=== PATIENT | female | born 1980 | race African-American/Black ===

== ENCOUNTER 2018-08-25 08:39 | Outpatient (CLI) | payer MEDICAID ==
--- NOTE | 2018-08-25 11:15 | MMO ---
Bilateral MAMMO Bilat Screen [facility]. CLINICAL HISTORY: Patient is 38 years old and is seen for screening. The patient has no family history of breast cancer. The patient has no personal history of cancer. VIEWS: The views performed were: bilateral craniocaudal and bilateral mediolateral oblique. This study has been interpreted with the assistance of computer-aided detection. MAMMOGRAM FINDINGS: There are scattered fibroglandular densities. There are no suspicious masses, suspicious calcifications, or new areas of architectural distortion. IMPRESSION: THERE IS NO MAMMOGRAPHIC EVIDENCE OF MALIGNANCY. A ROUTINE FOLLOW-UP MAMMOGRAM IN 1 YEAR IS RECOMMENDED. ACR BI-RADS Category 1 - Negative MAMMOGRAPHY NOTE: 1. A negative mammogram report should not delay a biopsy if a dominant of clinically suspicious mass is present. 2. Approximately 10% to 15% of breast cancers are not detected by mammography. 3. Adenosis and dense breasts may obscure an underlying neoplasm.
== END 2018-08-25 08:40 | disposition home or self-care (01) ==
LOC: SCSMAMMO 08:39
PROVIDERS: ATTEND Physician Assistant
DX: Z12.31 Encounter for screening mammogram for malignant neoplasm of breast (principal)
CPT/HCPCS: 77067

== ENCOUNTER 2024-03-27 13:17 | Inpatient (IN) | payer MEDICAID, OTHER ==
[~2024-03-27 13:17] MED LIST: Iopamidol-370 76% 500 ML MDV (1 ML CHARGE) ONE
[2024-03-27 14:03] LABS: #Basophils Less than 0.03 10x3/uL (0.0-0.2); %Basophils 0.4 % (0.0-1.0); %Eosinophils 0.6 % (0.0-10.0); %Lymphocytes 29.6 % (21.0-51.0); %Monocytes 6.9 % (0.0-10.0); %Neutrophils 62.3 % (42.0-75.0); Hematocrit 33.6 % (36.0-47.0); Hemoglobin 10.1 g/dL (12.0-16.0); Mean Corpuscular HGB CONC 30.1 g/dL (32.0-36.0); Mean Corpuscular Hemoglobin 24.5 pg (27.0-31.0); Mean Corpuscular Volume 81.6 fL (78.0-98.0); Mean Platelet Volume 10.7 fL (7.4-10.4); Platelet Count 285 10x3/uL (130-400); RBC Distribution Width 14.1 % (11.5-14.5); Red Blood Cell (RBC) Count 4.12 mill/uL (4.20-5.40)
[2024-03-27] MEDS ORDERED: Metoclopramide HCl 10 MG (2 mL) VIAL ONE (14:14)
[2024-03-27] MEDS ORDERED: Ketorolac Tromethamine 30 MG (1 mL) VIAL ONE (14:14)
[2024-03-27] MEDS ORDERED: Acetaminophen 500 MG TAB ONE (14:14)
[2024-03-27 14:16] LABS: Prothrombin Time 13.4 sec (12.0-14.7)
[2024-03-27 14:18] LABS: Lipase 18 U/L (8-78); Magnesium 1.9 mg/dL (1.6-2.6)
[2024-03-27 14:19] LABS: Acetaminophen Less than 10 mcg/mL (Less than 10); Alcohol Less than 10.0 mg/dL (Less than 10); Salicylate Less than 8.0 mg/dL (Less than 8.0)
[2024-03-27 14:20] LABS: ALT (SGPT) 20 U/L (8-55); AST (SGOT) 11 U/L (5-34); Albumin 3.8 g/dL (3.5-5.0); Alkaline Phosphatase 120 U/L (40-110); Anion Gap 13 mmol/L (10-20); BUN (Urea Nitrogen) 16 mg/dL (7.0-18.7); Bilirubin, Total 0.4 mg/dL (0.2-1.2); Calc. Creatinine Clearance 0 mL/min (70-130); Calcium 9.6 mg/dL (7.8-10.44); Carbon Dioxide 23 mmol/L (22-29); Chloride 108 mmol/L (98-107); Estimated GFR 92; Globulin 3.2 g/dL (2.4-3.5); Glucose 318 mg/dL (70-105); Potassium 4.3 mmol/L (3.5-5.1); Sodium 140 mmol/L (136-145); Troponin I Less than 0.010 ng/mL (< 0.028)
[2024-03-27 14:29] LABS: Actual Bicarbonate (HCO3v) 23.5 mEq/L (22-28); Analyzer IN Cardio ER; Base Excess -1.2 mEq/L (-2.0 to +3.0); Calcium, Ionized (venous) 1.19 mmol/L (1.16-1.32); Chloride (VBG) 103 mmol/L (98-106); Hematocrit-VBG 36 % (36.0-47.0); Hemoglobin (Hb) 12.2 g/dL (11.7-16.0); Potassium (VBG) 4.15 mmol/L (3.70-5.30); Sodium 140 mmol/L (133-146); pH (venous) 7.397 (7.32-7.43)
[2024-03-27 14:58] LABS: Amphetamine Not Detected (NotDetected); Barbiturates Screen Not Detected (NotDetected); Benzodiazepine Screen Not Detected (NotDetected); Cocaine Metabolite Screen Not Detected (NotDetected); Methadone Not Detected (NotDetected); Methamphetamine Not Detected (NotDetected); Opiate Screen Not Detected (NotDetected); Oxycodone Screen Not Detected (NotDetected); Phencyclidine (PCP) Not Detected (NotDetected); THC/Cannabinoid Screen Not Detected (NotDetected); Tricyclic Screen Not Detected (NotDetected)
[2024-03-27 15:08] LABS: Bilirubin Negative (Negative); Blood, Urine Trace (Negative); CAUTI Indications for Culture Alt mental st,lethar; Glucose, Urine (Dipstick) Greater than 1000 mg/dL (Negative); Ketone, Urine Negative (Negative); Leukocyte 75 Leu/uL (Negative); Nitrite Negative (Negative); Protein, Urine (Dipstick) Negative (Neg-Trace); Specific Gravity, Urine 1.044 (1.002-1.036); Squamous Epithelial 0-3 HPF (0-3); Urobilinogen Normal mg/dL (Less than 2); WBC/HPF 21-50 HPF (0-3); Yeast-Hyphae Rare HPF (None Seen); pH, Urine 5.5 (5.0-9.0)
[2024-03-27 15:10] LABS: Bacteria/HPF 4+ HPF (None Seen); Clarity Hazy (Clear); Yeast-Budding 2+ HPF (None Seen)
[2024-03-27 15:11] LABS: Urine Culture Reflex Yes Yes
[2024-03-27] MEDS ORDERED: cefTRIAXone (ROCEPHIN) 1 GM VIAL ONE (16:05)
[2024-03-27] MEDS ORDERED: Sodium Chloride 0.9% 100 ML ONE (16:06)
[2024-03-27] MEDS ORDERED: Glucagon 1 MG/ML KIT IM PRN (18:14)
[2024-03-27] MEDS ORDERED: hydrALAZINE 20 MG/ML VIAL SLOW IVP PRN (18:14)
[2024-03-27] MEDS ORDERED: Ondansetron ODT 4 MG TAB PO PRN (18:14)
[2024-03-27] MEDS ORDERED: Dextrose 50% Abboject 50 ML SYRINGE SLOW IVP PRN (18:14)
[2024-03-27] MEDS ORDERED: Ondansetron PF 4 MG/2 ML Vial IVP PRN (18:14)
[2024-03-27] MEDS ORDERED: Senokot S 8.6-50 MG TAB PO PRN (18:14)
[2024-03-27] MEDS ORDERED: Dextrose 5% in Water 1,000 ML IV PRN (18:14)
[2024-03-27] MEDS ORDERED: Acetaminophen 650 MG Suppository PR PRN (18:14)
[2024-03-27] MEDS: Lactated Ringer's 1,000 ML IV SCH (22:02)
[2024-03-27] MEDS: Famotidine 20 MG TAB PO SCH (22:03)
[2024-03-27] MEDS: Aspirin Chewable 81 MG TAB PO SCH (22:03)
[2024-03-27] MEDS: Atorvastatin Calcium 40 MG TAB PO SCH (22:03)
[2024-03-28] MEDS: Acetaminophen 325 MG TAB PO PRN (01:55)
[2024-03-28 04:18] LABS: #Basophils 0.03 10x3/uL (0.0-0.2); %Basophils 0.6 % (0.0-1.0); %Lymphocytes 26.8 % (21.0-51.0); %Monocytes 6.5 % (0.0-10.0); %Neutrophils 64.9 % (42.0-75.0); Hematocrit 29.9 % (36.0-47.0); Mean Corpuscular HGB CONC 30.1 g/dL (32.0-36.0); Mean Corpuscular Hemoglobin 24.5 pg (27.0-31.0); Mean Corpuscular Volume 81.3 fL (78.0-98.0); Mean Platelet Volume 10.6 fL (7.4-10.4); Platelet Count 255 10x3/uL (130-400); RBC Distribution Width 14.1 % (11.5-14.5); Red Blood Cell (RBC) Count 3.68 mill/uL (4.20-5.40)
[2024-03-28 04:39] LABS: ALT (SGPT) 18 U/L (8-55); AST (SGOT) 15 U/L (5-34); Albumin 3.1 g/dL (3.5-5.0); Alkaline Phosphatase 105 U/L (40-110); Anion Gap 15 mmol/L (10-20); BUN (Urea Nitrogen) 13 mg/dL (7.0-18.7); Bilirubin, Total 0.3 mg/dL (0.2-1.2); Calc. Creatinine Clearance 134 mL/min (70-130); Calcium 8.5 mg/dL (7.8-10.44); Carbon Dioxide 22 mmol/L (22-29); Cardiac Risk 2.2 (Less than 4.5); Chloride 105 mmol/L (98-107); Cholesterol 98 mg/dl (< 200 Desired); Estimated GFR 95; Globulin 3.2 g/dL (2.4-3.5); Glucose 260 mg/dL (70-105); HDL Cholesterol 45 mg/dL (>60 Neg Risk); LDL Cholesterol, Calculated 23 mg/dL; Potassium 3.7 mmol/L (3.5-5.1); Protein, Total 6.3 g/dL (6.0-8.3); Sodium 138 mmol/L (136-145); Triglycerides 148 mg/dL (Less than 150)
[2024-03-28] MEDS ORDERED: Lorazepam 1 MG TAB PO SCH (08:30)
[2024-03-28] MEDS: Ketorolac Tromethamine 30 MG (1 mL) VIAL IVP PRN (08:31)
[2024-03-28] MEDS: Enoxaparin 40 MG (0.4 mL) SYRINGE SC SCH (08:32)
[2024-03-28] MEDS: Aspirin 81 mg Enteric Coated Tablet PO SCH (08:32)
[2024-03-28] MEDS: Calcium Carbonate 500 MG ChewTAB PO PRN (11:25)
[2024-03-28] MEDS: Insulin Lispro 100 UNIT/ML 10 ML VIAL SC PRN (14:09)
[2024-03-28] MEDS: cefTRIAXone\\ROCEPHIN 1 GM in Sodium Chloride 0.9% 100 ML IVPB SCH (17:35)
[2024-03-28 23:19] VITALS: BMI 31.6
[2024-03-29 03:57] LABS: #Basophils Less than 0.03 10x3/uL (0.0-0.2); %Basophils 0.3 % (0.0-1.0); %Eosinophils 1.3 % (0.0-10.0); %Lymphocytes 33.5 % (21.0-51.0); %Monocytes 6.2 % (0.0-10.0); %Neutrophils 58.7 % (42.0-75.0); Hemoglobin 10.2 g/dL (12.0-16.0); Mean Corpuscular HGB CONC 30.9 g/dL (32.0-36.0); Mean Corpuscular Hemoglobin 24.3 pg (27.0-31.0); Mean Corpuscular Volume 78.8 fL (78.0-98.0); Platelet Count 257 10x3/uL (130-400); RBC Distribution Width 13.8 % (11.5-14.5); Red Blood Cell (RBC) Count 4.19 mill/uL (4.20-5.40)
[2024-03-29 04:30] LABS: Hemoglobin A1c 11.7 % (4.0-6.0)
[2024-03-29 04:39] LABS: Anion Gap 13 mmol/L (10-20); BUN (Urea Nitrogen) 11 mg/dL (7.0-18.7); Calc. Creatinine Clearance 142 mL/min (70-130); Carbon Dioxide 23 mmol/L (22-29); Chloride 102 mmol/L (98-107); Estimated GFR 98; Glucose 239 mg/dL (70-105); Potassium 3.9 mmol/L (3.5-5.1); Sodium 134 mmol/L (136-145)
[2024-03-29] MEDS ORDERED: Lorazepam 1 MG TAB PO SCH (07:30)
[2024-03-29] MEDS: Lorazepam 1 MG TAB PO SCH (07:38)
[2024-03-29] MEDS: Losartan 25 MG TAB PO SCH (09:48)
[2024-03-29] MEDS: Pioglitazone HCl 15 MG TAB PO SCH (09:48)
[2024-03-29] MEDS: Amlodipine 10 MG TAB PO SCH (09:48)
[2024-03-29] MEDS: Gabapentin 300 MG CAP PO SCH ×2 (09:49→19:55)
[2024-03-29] MEDS ORDERED: Magnevist 469MG/ML 20 ML VIAL ONE (14:38)
[2024-03-29] MEDS: Insulin Lispro 100 UNIT/ML 10 ML VIAL SC PRN (19:59)
[2024-03-29] MEDS ORDERED: [UNRECOGNIZED DRUG - OTHER] SQ SCH (21:00)
[2024-03-29] MEDS ORDERED: INSULIN LISPRO 100 UNIT/ML SQ SCH (21:00)
[2024-03-29] MEDS ORDERED: Insulin Lispro 100 UNIT/ML 10 ML VIAL SC SCH (21:00)
[2024-03-30 08:16] LABS: Troponin I Less than 0.010 ng/mL (< 0.028)
[2024-03-30 09:07] LABS: Anion Gap 15 mmol/L (10-20); BUN (Urea Nitrogen) 10 mg/dL (7.0-18.7); Calc. Creatinine Clearance 143 mL/min (70-130); Calcium 9.4 mg/dL (7.8-10.44); Carbon Dioxide 23 mmol/L (22-29); Chloride 104 mmol/L (98-107); Estimated GFR 101; Glucose 234 mg/dL (70-105); Potassium 4.1 mmol/L (3.5-5.1); Sodium 138 mmol/L (136-145)
[2024-03-30] MEDS: Insulin Glargine 30 UNITS/0.3 ML VIAL SC SCH (09:31)
[2024-03-30 12:40] VITALS: BP 115/78; TEMP 98.2
== END 2024-03-30 15:44 | disposition home or self-care (01) | DRG 690 ==
LOC: ERS 13:17 → 2SE 17:36 → OBSVTOIN 03-28 14:56 → MSONC 03-29 16:34
PROVIDERS: ADMIT Hospitalist; ATTEND Internal Medicine
DX: N39.0 Urinary tract infection, site not specified (principal); G81.94 Hemiplegia, unspecified affecting left nondominant side; G35 Multiple sclerosis; I10 Essential (primary) hypertension; E11.65 Type 2 diabetes mellitus with hyperglycemia; D64.9 Anemia, unspecified; Z79.4 Long term (current) use of insulin; Z79.899 Other long term (current) drug therapy; Z79.82 Long term (current) use of aspirin; Z98.890 Other specified postprocedural states
CPT/HCPCS: 36415; 36416; 70450; 70496; 70498; 70553; 71045; 80048; 80053; 80061; 80306; 80307; 81001; 82805; 83036; 83605; 83690; 83735; 83880; 84484; 85025; 85610; 85730; 87040; 87077; 87086; 87186; 93005; 93010; 96365; 96366; 96367; 96375; J0696; J1650; J1815; J1885; J2765; J7120; Q9967

== ENCOUNTER 2025-04-08 12:53 | Emergency (ER) | payer OTHER ==
[2025-04-08 13:46] LABS: #Basophils Less than 0.03 10x3/uL (0.0-0.2); #Eosinophils 0.03 10x3/uL (0.0-0.7); #Monocytes 0.39 10x3/uL (0.11-0.59); #Neutrophils 7.55 10x3/uL (1.40-6.50); %Basophils 0.1 % (0.0-1.0); %Eosinophils 0.3 % (0.0-10.0); %Lymphocytes 13.3 % (21.0-51.0); %Monocytes 4.2 % (0.0-10.0); %Neutrophils 81.6 % (42.0-75.0); Hematocrit 39.4 % (36.0-47.0); Hemoglobin 12.5 g/dL (12.0-16.0); Mean Corpuscular Hemoglobin 26.5 pg (27.0-31.0); Mean Corpuscular Volume 83.5 fL (78.0-98.0); Platelet Count 320 10x3/uL (130-400); Red Blood Cell (RBC) Count 4.72 mill/uL (4.20-5.40); White Blood Cell (WBC) Count 9.26 10x3/uL (4.8-10.8)
[2025-04-08] MEDS ORDERED: Ondansetron PF 4 MG/2 ML Vial ONE (13:47)
[2025-04-08 13:56] LABS: BHCG - Serum Negative (NEGATIVE); Pregs Control Background? CLEAR/WHITE (CLR/WHITE); Pregs Control Bar Appear? YES (CONTROL BAR)
[2025-04-08 14:51] LABS: CAUTI Indications for Culture Dysuria,urgency,freq; Glucose, Urine (Dipstick) Greater than 1000 mg/dL (Negative); Leukocyte 75 Leu/uL (Negative); Protein, Urine (Dipstick) Negative (Neg-Trace); RBC/HPF 21-50 HPF (0-3); Specific Gravity, Urine 1.037 (1.002-1.036); WBC/HPF 21-50 HPF (0-3)
[2025-04-08 14:54] LABS: Bacteria/HPF 1+ HPF (None Seen)
[2025-04-08 14:56] LABS: Urine Culture Reflex Yes Yes
[2025-04-08 15:27] LABS: ALT (SGPT) 19 U/L (Less than 34); AST (SGOT) 24 U/L (11-34); Albumin 3.6 g/dL (3.1-4.5); Alkaline Phosphatase 146 U/L (40-110); Anion Gap 15 mmol/L (10-20); BUN (Urea Nitrogen) 18 mg/dL (7.0-18.7); Bilirubin, Total 0.8 mg/dL (0.3-1.2); Calc. Creatinine Clearance 0 mL/min (70-130); Calcium 9.9 mg/dL (7.8-10.44); Carbon Dioxide 24 mmol/L (22-29); Chloride 103 mmol/L (98-107); Globulin 3.6 g/dL (2.4-3.5); Glucose 476 mg/dL (70-105); Lipase 10 U/L (8-78); Potassium 4.6 mmol/L (3.5-5.1); Sodium 137 mmol/L (136-145)
== END 2025-04-08 18:30 | disposition home or self-care (01) ==
LOC: ERS 12:53
DX: N39.0 Urinary tract infection, site not specified (principal); E11.65 Type 2 diabetes mellitus with hyperglycemia; I10 Essential (primary) hypertension; Z55.6 Problems related to health literacy; Z79.4 Long term (current) use of insulin; Z79.899 Other long term (current) drug therapy
CPT/HCPCS: 74176; 80053; 81001; 82962; 83605; 83690; 84484; 84703; 85025; 87086; 93005; J1815; J2270; J2405; 36416; 96361; 96374; 96375